=== PATIENT | female | born 1990 | race Caucasian/White ===

== ENCOUNTER 2019-12-20 20:51 | Emergency (ER) | payer MEDICAID ==
[~2019-12-20] VITALS: Ht 162.6 cm; Wt 80.3 kg
[2019-12-20 21:00] VITALS: Ht 162.6 cm; Wt 80.3 kg
[2019-12-20 21:29] VITALS: BP 121/84
== END 2019-12-20 21:30 | disposition home or self-care (01) ==
LOC: ED 20:51
DX: H92.01 Otalgia, right ear (principal); J45.909 Unspecified asthma, uncomplicated